=== PATIENT | male | born 2000 | race Hispanic/Latino ===

== ENCOUNTER 2021-10-27 17:03 | Emergency (ER) | payer MEDICAID ==
[~2021-10-27] VITALS: Ht 177.8 cm; Wt 81.6 kg
[2021-10-27 17:06] VITALS: BP 114/89
[2021-10-27] MEDS ORDERED: ONDANSETRON ODT 4MG TAB SL ONE (18:30)
[2021-10-27] MEDS ORDERED: IBUPROFEN 600 MG TABLET PO ONE (18:30)
[2021-10-27 18:39] LABS: BASOPHILS % (AUTO) 0.1 % (0.0-5.0); EOSINOPHILS % (AUTO) 0.1 % (0.0-8.0); HEMATOCRIT 46.5 % (42-54); LYMPHOCYTES % (AUTO) 3.1 % (21.0-51.0); MEAN CORPUSCULAR HEMOGLOBIN 29.7 pg (27.0-33.0); MEAN CORPUSCULAR HGB CONC 35.1 g/dL (32.0-36.0); MEAN CORPUSCULAR VOLUME 84.9 fL (80-100); MONOCYTES % (AUTO) 4.1 % (3.0-13.0); NEUTROPHILS % (AUTO) 92.3 % (40.0-77.0); PLATELET COUNT (AUTO) 234 K/uL (130-400); RED BLOOD CELL COUNT(AUTO) 5.48 MIL/uL (4.50-6.20); RED CELL DISTRIBUTION WIDTH 11.9 % (11.0-15.5); WHITE BLOOD COUNT (AUTO) 15.8 K/uL (4.8-10.8)
[2021-10-27 18:48] LABS: CREATININE 1.1 mg/dL (0.5-1.5); POTASSIUM 3.3 mmol/L (3.5-5.1)
[2021-10-27 18:54] LABS: ALBUMIN 4.9 g/dL (3.5-5.0); TOTAL PROTEIN, SERUM 8.7 g/dL (6.0-8.3)
[2021-10-27] MEDS ORDERED: 0.9%NACL 1000ML 1,000 ML IV ONE (19:00)
[2021-10-27] MEDS ORDERED: IOHEXOL 350 MG/ML 100ML INFUS..BTL IV ONE (19:18)
[2021-10-27] MEDS ORDERED: ONDA4TAB10 PO (20:00)
[2021-10-27] MEDS ORDERED: FAMO-136 PO (20:00)
[2021-10-27] MEDS ORDERED: IBUP-2070 PO (20:00)
== END 2021-10-27 20:18 | disposition home or self-care (01) ==
LOC: EDH 17:03
DX: J06.9 Acute upper respiratory infection, unspecified (principal); R10.9 Unspecified abdominal pain; R11.2 Nausea with vomiting, unspecified; Z20.822 Contact with and (suspected) exposure to COVID-19
CPT/HCPCS: 99285; 74177; 96360; 80053; 87635; 85025; 87880; 87804 ×2; 36415; C9803; J7030; Q9967

== ENCOUNTER 2022-05-13 14:05 | Emergency (ER) | payer MEDICAID ==
[~2022-05-13] VITALS: Ht 177.8 cm; Wt 74.8 kg
[~2022-05-13 14:05] MED LIST: FAMO-136 PO; IBUP-2070 PO; ONDA4TAB10 PO
[2022-05-13 15:14] VITALS: BP 150/74
[2022-05-13] MEDS ORDERED: ONDANSETRON 4MG INJ ONE (15:43)
[2022-05-13 15:45] LABS: BASOPHILS % (AUTO) 0.2 % (0.0-5.0); EOSINOPHILS % (AUTO) 0.1 % (0.0-8.0); HEMATOCRIT 50.3 % (42-54); LYMPHOCYTES % (AUTO) 6.9 % (21.0-51.0); MEAN CORPUSCULAR HEMOGLOBIN 29.5 pg (27.0-33.0); MEAN CORPUSCULAR HGB CONC 35.2 g/dL (32.0-36.0); MEAN CORPUSCULAR VOLUME 83.8 fL (80-100); MONOCYTES % (AUTO) 2.4 % (3.0-13.0); PLATELET COUNT (AUTO) 328 K/uL (130-400); RED CELL DISTRIBUTION WIDTH 11.9 % (11.0-15.5); WHITE BLOOD COUNT (AUTO) 16.4 K/uL (4.8-10.8)
[2022-05-13 15:54] LABS: CREATININE 1.1 mg/dL (0.5-1.5); POTASSIUM 3.5 mmol/L (3.5-5.1)
[2022-05-13 15:58] LABS: ALBUMIN 5.1 g/dL (3.5-5.0)
[2022-05-13] MEDS ORDERED: ONDANSETRON 4MG INJ IVP ONE (16:00)
[2022-05-13] MEDS ORDERED: 0.9%NACL 1000ML 1,000 ML IV SCH (16:00)
[2022-05-13] MEDS ORDERED: KETOROLAC 60 MG VIAL (30MG/ML) IM ONE ×2 (16:27→16:30)
[2022-05-13 17:07] LABS: APPEARANCE,URINE CLEAR (CLEAR); BILIRUBIN,URINE NEGATIVE (NEGATIVE); COLOR,URINE LIGHT-YELLOW (YELLOW); GLUCOSE, URINE (UA) NEGATIVE (NEGATIVE); KETONES,URINE 100 mg/dL (NEGATIVE); LEUKOCYTE ESTERASE ,URINE NEGATIVE Leu/uL (NEGATIVE); NITRATE,URINE NEGATIVE (NEGATIVE); OCCULT BLOOD,URINE NEGATIVE (NEGATIVE); PROTEIN,URINE 10 mg/dL (NEGATIVE); UROBILINOGEN,URINE 0.2 mg/dL (0.2-1.0)
[2022-05-13 17:08] LABS: MUCUS,URINE RARE LPF (None Seen); RBC,URINE 0-1 /HPF (0-1); WBC,URINE 0-1 /HPF (0-1)
[2022-05-13] MEDS ORDERED: POLY17PO4 PO (19:12)
== END 2022-05-13 19:35 | disposition home or self-care (01) ==
LOC: EDH 14:05
DX: R10.13 Epigastric pain (principal); K59.00 Constipation, unspecified; R11.2 Nausea with vomiting, unspecified; Z79.899 Other long term (current) drug therapy
CPT/HCPCS: 99285; 74176; 96374; 96361; 80053; 83690; 85025; 81001; 36415; 96372; J7030; J2405; J1885 ×2

== ENCOUNTER 2025-02-21 22:46 | Emergency (ER) | payer SELFPAY ==
[~2025-02-21] VITALS: Ht 177.8 cm; Wt 77.1 kg
[~2025-02-21 22:46] MED LIST changes: +IBUP-1492 PO; -IBUP-2070 PO; +ONDA-243 PO; -ONDA4TAB10 PO; +POLY17PO4 PO
--- NOTE | 2025-02-21 23:12 | ERN ---
ED Note History of Present Illness Stated Complaint: ABD PAIN Chief Complaint: Abdominal Pain Time Seen by MD: 22:52 Dictation: Patient is a 25-year-old male who presents to the ER complaining of cough blood today, he said he does cocaine, and vaping. He denies chest pain, denies fever or chills. Allergies: Coded Allergies: No Known Drug Allergies (Unverified Allergy, Unknown, 10/27/21) Home Meds Active Scripts Polyethylene Glycol 3350 (Miralax) 17 Gm Powd.pack, 17 GM PO ONCE for constipation for 10 Days, #1 / Prov:VIRI KLINE DNP 05/13/22 Famotidine (Pepcid) 20 Mg Tablet, 20 MG PO DAILY, #15 TAB Prov:FITTING,DA TEST CLERK 10/27/21 Ibuprofen (Ibuprofen) 600 Mg Tablet, 600 MG PO Q6H PRN for PAIN, #15 TAB Prov:FITTING,DA TEST CLERK 10/27/21 Ondansetron (Ondansetron Odt) 4 Mg Tab.rapdis, 4 MG PO TID, #15 TAB Prov:FITTING,JORGELOLY TEST CLERK 10/27/21 Past Medical History Past Medical History: No Pertinent History Surgical History: None Review of System Dictation NEGATIVE EXCEPT PER HPI Constitutional: Negative for fever,chills, and weight loss Eyes: Negative for injury, pain,redness, and discharge ENT: Negative for injury,pain or swelling Cardiovascular: denies chest pain, palpitations, and edema Respiratory: Cough with blood Abdomen/GI: Negative for abdominal pain, nausea, vomiting, diarrhea, and constipation Back: Negative for injury and pain : Negative for injury, bleeding and discharge MS/Extremity: Negative for injury and deformity Skin: Negative for rash, and discoloration Neuro: Negative for headache, weakness, numbness, tingling, and seizure Psych: Negative for suicide ideation, homicidal ideation, and hallucinations Initial Vital Sign VS Vital Signs Date Time Temp Pulse Resp B/P (MAP) Pulse Ox O2 Delivery O2 Flow Rate FiO2 02/21/25 22:48 98.1 91 18 124/64 99 02/22/25 00:10 Room Air* 0 21 Physical Exam Dictation General: awake, alert, NAD Head/Face: Normocephalic, atraumatic Eyes: PERRL, EOMI, vision at baseline ENT: oral cavity clear, TMs clear, no signs of infection Neck: Trachea midline, supple, no nuchal rigidity Cardiovascular: RRR, normal S1/S2, No MRGs, no JVD Respiratory: CTAB, no respiratory distress, No rales or wheezes Abdomen: Soft , no tender Skin: Warm, dry, normal turgor, no rash MS/Extremity: Pulses equal, no cyanosis, neurovascular intact, FROM Neuro: COAx4, GCS 15, strength 5/5, CN 2-12 intact, normal cerebellar exam, normal gait, Psych: Normal behavior, mood, and affect normal Results (Laboratory/Radiology) Laboratory/Radiology Laboratory Tests Test 02/21/25 23:15 White Blood Count 9.4 K/uL (4.8-10.8) Red Blood Count 5.34 MIL/uL (4.50-6.20) Hemoglobin 16.1 g/dL (14.0-18.0) Hematocrit 46.7 % (42-54) Mean Corpuscular Volume 87.5 fL (79-99) Mean Corpuscular Hemoglobin 30.1 pg (27.0-33.0) Mean Corpuscular Hemoglobin Concent 34.5 g/dL (32.0-36.0) Red Cell Distribution Width 12.5 % (11.0-15.5) Platelet Count 321 K/uL (130-400) Mean Platelet Volume 8.7 fL (7.5-10.5) Immature Granulocyte % (Auto) 0.4 % (0-1) Neutrophils (%) (Auto) 76.8 % (40.0-77.0) Lymphocytes (%) (Auto) 15.4 % (21.0-51.0) L Monocytes (%) (Auto) 6.7 % (3.0-13.0) Eosinophils (%) (Auto) 0.2 % (0.0-8.0) Basophils (%) (Auto) 0.5 % (0.0-5.0) Neutrophils # (Auto) 7.2 K/uL (1.8-7.7) Lymphocytes # (Auto) 1.5 K/uL (1.0-4.8) Monocytes # (Auto) 0.6 K/uL (0.1-1.0) Eosinophils # (Auto) 0.02 K/uL (0.00-0.70) Basophils # (Auto) 0.05 K/uL (0.00-0.20) Absolute Immature Granulocyte (auto 0.04 K/uL (0-1) Nucleated Red Blood Cells 0.0 % (0.0-0.19) Sodium Level 141 mmol/L (136-145) Potassium Level 4.3 mmol/L (3.5-5.1) Chloride Level 104 mmol/L (101-111) Carbon Dioxide Level 31 mmol/L (21-32) Blood Urea Nitrogen 14 mg/dL (7-18) Creatinine 1.1 mg/dL (0.5-1.3) Glomerular Filtration Rate Calc 96 mL/min (>90) Random Glucose 91 mg/dL (70-105) Total Calcium 9.8 mg/dL (8.5-10.1) ED Course ED Course Orders Procedure Category Date Status Time Cbc With Differential LAB 02/21/25 Complete 23:02 Basic Metabolic Panel LAB 02/21/25 Complete 23:02 Chest 1vw RAD 02/21/25 Resulted 23:02 Drug Screen Urine LAB 02/21/25 In Process 23:05 Vital Signs Date Time Temp Pulse Resp B/P (MAP) Pulse Ox O2 Delivery O2 Flow Rate FiO2 02/22/25 00:10 98.2 71 18 114/49 98 Room Air* 0 21 02/21/25 22:48 98.1 91 18 124/64 99 Medical Decision Making MDM Patient is a 25-year-old male who presents to the ER complaining of cough blood today, he said he does cocaine, and vaping. He denies chest pain, denies fever or chills. Lung disease -pneumonia Illicit drug abuse Ordered chest x-ray X-ray within normal limits, Laboratory workup within normal limits Recommend patient stopped doing illicit drugs and vaping. DX & DISP Disposition: Discharge Departure Impression: Primary Impression: Vaping-related disorder Additional Impression: Blood-streaked sputum Condition: Stable Referrals: REMI PADILLA MD (PCP) Time of Disposition: 00:37 LINUS SLADE MD Feb 21, 2025 23:12
[2025-02-21 23:22] LABS: IMMATURE GRANULOCYTE ABSOLUTE 0.04 K/uL (0-1); NUCLEATED RED BLOOD CELLS 0.0 % (0.0-0.19); PLATELET COUNT (AUTO) 321 K/uL (130-400); RED BLOOD CELL COUNT(AUTO) 5.34 MIL/uL (4.50-6.20); RED CELL DISTRIBUTION WIDTH 12.5 % (11.0-15.5); WHITE BLOOD COUNT (AUTO) 9.4 K/uL (4.8-10.8)
[2025-02-21 23:30] LABS: CREATININE 1.1 mg/dL (0.5-1.3); GLOMERULAR FILTR. RATE CALC 96.0 mL/min (>90); GLUCOSE,RANDOM 91.0 mg/dL (70-105); SODIUM SERUM 141.0 mmol/L (136-145); UREA NITROGEN, BLOOD 14.0 mg/dL (7-18)
--- NOTE | 2025-02-21 23:57 | NUR ---
ASSUMED PT CARE
--- NOTE | 2025-02-22 00:02 | HMCIMG ---
EXAM: CR Chest, 2 views CLINICAL HISTORY: Coughing blood. COMPARISON: None provided. FINDINGS: The lungs show no infiltrates or other acute findings. No pleural effusion or pneumothorax. The cardiomediastinal silhouette is within normal limits. No acute osseous abnormality. IMPRESSION: No acute cardiopulmonary process is evident. /[place]
[2025-02-22 00:41] VITALS: BP 112/52; PULSE 68; RESP 16; TEMP 98.1; O2SAT 99
[2025-02-22 01:02] LABS: AMPHET/METH SCREEN,URINE NEGATIVE (NEGATIVE); BARBITURATE SCREEN, URINE NEGATIVE (NEGATIVE); CANNABINOID SCREEN,URINE POSITIVE (NEGATIVE); COCAINE SCREEN,URINE POSITIVE (NEGATIVE)
== END 2025-02-22 00:42 | disposition home or self-care (01) ==
LOC: EDH 22:46
DX: U07.0 Vaping-related disorder (principal); R04.2 Hemoptysis; R05.9 Cough, unspecified
CPT/HCPCS: 36415; 71045; 80048; 80305; 85025; 99284